=== PATIENT | male | born 1965 | race Caucasian/White ===

== ENCOUNTER → 2022-12-16 | Outpatient (CLI) | payer MEDICARE, MEDICAID ==
[~2022-12-16] MED LIST: ASPIR 8181 MG PO; LIPITOR20 MG PO; LOPRESSOR25 MG PO; MELATONIN5 M1 SL; OMEGA-3 FISH1200 MG PO; RITE AID KRILL500 MG PO; SUPER BETA PROSTATE PO; VISTARIL25 M1 PO; XANAX0.25 MG PO; ZESTRIL,PRINIVI20 MG PO; ZOLOFT25 MG PO
== END | disposition home or self-care (01) ==
LOC: CARD 11:13
PROVIDERS: ATTEND Internal Medicine Cardiovascular Disease
DX: I77.819 Aortic ectasia, unspecified site (principal); R06.09 Other forms of dyspnea

== ENCOUNTER → 2022-12-23 | Outpatient (CLI) | payer MEDICARE, MEDICAID ==
[~2022-12-23] MED LIST changes: +DESCOVY 200-251 EACH PO; +LOSARTAN-HCTZ1 EAC1 PO; +NORVASC5 MG PO; +PLAVIX75 M1 PO; +PRILOSEC20 M1 PO; +TIVICAY50 M1 PO; +WELLBUTRIN XL300 MG PO; +ZOLOFT100 MG PO
== END | disposition home or self-care (01) ==
LOC: CARD 01:07
PROVIDERS: ATTEND Internal Medicine Cardiovascular Disease
DX: I25.9 Chronic ischemic heart disease, unspecified (principal)